=== PATIENT | female | born 1970 ===

== ENCOUNTER 2018-07-19 16:48 | Emergency (ER) | payer SELFPAY ==
[2018-07-19 16:59] VITALS: BP 99/63
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
== END 2018-07-19 18:30 | disposition home or self-care (01) ==
LOC: ED 16:48
DX: M79.18 Myalgia, other site (principal); Z88.6 Allergy status to analgesic agent; Z88.5 Allergy status to narcotic agent; Z88.0 Allergy status to penicillin; V49.49XA Driver injured in collision with other motor vehicles in traffic accident, initial encounter; Y93.89 Activity, other specified; Y92.89 Other specified places as the place of occurrence of the external cause; Y99.8 Other external cause status
CPT/HCPCS: 99282

== ENCOUNTER 2020-05-26 16:05 | Emergency (ER) | payer BC ==
[2020-05-26] MEDS ORDERED: diphenhydrAMINE 50 MG/ML VIAL IV ONE (16:58)
[2020-05-26] MEDS ORDERED: METOCLOPRAMIDE 10 MG/2 ML INJ IV ONE (16:58)
[2020-05-26] MEDS ORDERED: KETOROLAC 30 MG/1 ML INJ IV ONE (16:58)
[2020-05-26 17:09] VITALS: BP 119/71
--- NOTE | 2020-05-26 17:10 | Emergency Department Report ---
ED Headache HPI - General Chief Complaint: Headache Stated Complaint: HEADACHE Time Seen by Provider: 05/26/20 16:32 - History of Present Illness Initial Comments: Patient is a 49-year-old female presents emergency room complaints of a frontal headache that began 3 days ago. She states that occasionally when the pain increases she feels blurriness in her vision. She has no blurry vision currently. Patient states that she has a history of migraines. She states that she uses a migraine medication intranasally. She states that she has been using it over the last 3 days and it resolves the headache but when she wakes up the headache returns. She states that this is similar to previous migraines except that the intranasal medication usually resolves the migraine. She denies any numbness, weakness, vomiting, diarrhea, fever, neck stiffness, gait disturbance, speech disturbance. She sees Dr. Linares, neurologist for her migraines. She states that she last had a normal CT scan of her head in September 2019. She states that she also has a history of sarcoidosis. Allergy to Tylenol 3, penicillin, Percocet. Allergies/Adverse Reactions: Allergies acetaminophen [From Percocet] Allergy (Verified 07/19/18 16:59) Itching grass pollen Allergy (Verified 05/26/20 16:06) Itching oxycodone [From Percocet] Allergy (Verified 07/19/18 16:59) Itching Penicillins Allergy (Verified 07/19/18 16:59) Itching Home Medications: Ambulatory Orders Ketorolac [Toradol] 10 mg PO Q6H PRN #15 tablet 07/19/18 methOCARBAMOL [Robaxin TAB] 750 mg PO Q8H PRN #14 tablet 07/19/18 traMADoL [Ultram] 50 mg PO Q6HR PRN #14 tablet 07/19/18 Cyclobenzaprine [Flexeril] 10 mg PO TID PRN #12 tablet 10/21/19 Ibuprofen [Motrin] 800 mg PO Q8HR PRN #21 tablet 10/21/19 Metoclopramide [Reglan] 10 mg PO Q8HR PRN #12 tab 05/26/20 diphenhydrAMINE [Benadryl CAP] 25 mg PO Q8HR PRN #12 capsule 05/26/20 ED Review of Systems ROS: Stated complaint: HEADACHE Other details as noted in HPI Comment: All other systems reviewed and negative ED Past Medical Hx - Past Medical History Previous Medical History?: Yes Hx Headaches / Migraines: Yes Additional medical history: Sarcoidosis - Surgical History Past Surgical History?: Yes Additional Surgical History: Breast reduction - Social History Smoking Status: Never Smoker Substance Use Type: Alcohol - Medications Home Medications: Home Medications Medication Instructions Recorded Confirmed Last Taken Type Ketorolac [Toradol] 10 mg PO Q6H PRN #15 tablet 07/19/18 Unknown Rx methOCARBAMOL [Robaxin TAB] 750 mg PO Q8H PRN #14 tablet 07/19/18 Unknown Rx traMADoL [Ultram] 50 mg PO Q6HR PRN #14 tablet 07/19/18 Unknown Rx Cyclobenzaprine [Flexeril] 10 mg PO TID PRN #12 tablet 10/21/19 Unknown Rx Ibuprofen [Motrin] 800 mg PO Q8HR PRN #21 tablet 10/21/19 Unknown Rx Metoclopramide [Reglan] 10 mg PO Q8HR PRN #12 tab 05/26/20 Unknown Rx diphenhydrAMINE [Benadryl CAP] 25 mg PO Q8HR PRN #12 capsule 05/26/20 Unknown Rx ED Physical Exam - General Limitations: No Limitations General appearance: alert, in no apparent distress - Head Head exam: Present: atraumatic, normocephalic - Eye Eye exam: Present: PERRL, EOMI. Absent: conjunctival injection, nystagmus, periorbital swelling, periorbital tenderness Pupils: Present: normal accommodation - Neck Neck exam: Present: full ROM. Absent: meningismus - Respiratory Respiratory exam: Present: normal lung sounds bilaterally. Absent: respiratory distress, wheezes, rales, rhonchi, stridor, chest wall tenderness, accessory muscle use, decreased breath sounds, prolonged expiratory - Cardiovascular Cardiovascular Exam: Present: regular rate, normal rhythm, normal heart sounds. Absent: systolic murmur, diastolic murmur, rubs, gallop - Neurological Exam Neurological exam: Present: alert, oriented X3, CN II-XII intact, normal gait, other (normal finger to nose, normal heel to ross, no pronator drift, no facial asymmetry, 5/5 strength in the BUE/BLE, sensation intact throughout, no focal neuro deficit). Absent: motor sensory deficit - Psychiatric Psychiatric exam: Present: normal affect, normal mood - Skin Skin exam: Present: warm, dry, intact ED Course Vital Signs 05/26/20 16:08 Temperature 98.3 F Pulse Rate 79 Respiratory 18 Rate Blood Pressure 119/71 O2 Sat by Pulse 97 Oximetry ED Medical Decision Making - Medical Decision Making Patient is a 49-year-old female presents emergency room complaints of a frontal headache that began 3 days ago. She states that occasionally when the pain increases she feels blurriness in her vision. She has no blurry vision currently. Patient states that she has a history of migraines. She states that she uses a migraine medication intranasally. She states that she has been using it over the last 3 days and it resolves the headache but when she wakes up the headache returns. She states that this is similar to previous migraines except that the intranasal medication usually resolves the migraine. She denies any numbness, weakness, vomiting, diarrhea, fever, neck stiffness, gait disturbance, speech disturbance. She sees Dr. Linares, neurologist for her migraines. She states that she last had a normal CT scan of her head in September 2019. She states that she also has a history of sarcoidosis. Allergy to Tylenol 3, penicillin, Percocet. vitals are normal. no neuro deficits on exam. Offered patient CT head imaging and she declined and states that she will follow-up with her neurologist tomorrow, she states that she will return if she has any new or worsening symptoms. Patient given Benadryl, Reglan, Toradol and headache completely resolved and she is ready to go home. Patient given prescription for Reglan and Benadryl. Advised patient Please continue using your medication as prescribed by your neurologist. Please take medication as prescribed. Benadryl may cause drowsiness so do not drive or operate heavy machinery while taking this medication. Follow-up with your primary care doctor. Follow-up with your neurologist. Return to emergency room immediately for any new or worsening symp toms. - Differential Diagnosis migraine headache, tension headache, cluster headache, chronic BERMUDEZ Critical care attestation.: If time is entered above; I have spent that time in minutes in the direct care of this critically ill patient, excluding procedure time. ED Disposition Clinical Impression: Migraine headache Qualifiers: Migraine type: unspecified Status migrainosus presence: without status migrainosus Intractability: not intractable Qualified Code(s): G43.909 - Migraine, unspecified, not intractable, without status migrainosus Disposition: DC-01 TO HOME OR SELFCARE Is pt being admited?: No Does the pt Need Aspirin: No Condition: Stable Instructions: Migraine Headache (ED) Additional Instructions: Please continue using your medication as prescribed by your neurologist. Please take medication as prescribed. Benadryl may cause drowsiness so do not drive or operate heavy machinery while taking this medication. Follow-up with your primary care doctor. Follow-up with your neurologist. Return to emergency room immediately for any new or worsening symptoms. Prescriptions: diphenhydrAMINE [Benadryl CAP] 25 mg PO Q8HR PRN #12 capsule PRN Reason: headache Metoclopramide [Reglan] 10 mg PO Q8HR PRN #12 tab PRN Reason: headache Referrals: [facility] [Primary Care Provider] - 2-3 Days GEORGE LINARES MD [Referring] - 2-3 Days Time of Disposition: 18:20 Print Language: ALBANIAN
== END 2020-05-26 18:29 | disposition home or self-care (01) ==
LOC: ED 16:05
DX: G43.909 Migraine, unspecified, not intractable, without status migrainosus (principal); Z98.890 Other specified postprocedural states; Z79.1 Long term (current) use of non-steroidal anti-inflammatories (NSAID); Z79.899 Other long term (current) drug therapy; Z88.0 Allergy status to penicillin; Z88.8 Allergy status to other drugs, medicaments and biological substances
CPT/HCPCS: 96374; 96375; 99282; J1200; J1885; J2765

== ENCOUNTER 2020-08-05 10:38 | Emergency (ER) | payer BC ==
--- NOTE | 2020-08-05 12:30 | XRay Report ---
CHEST 2 VIEWS INDICATION: cough. COMPARISON: None. FINDINGS: Support devices: None. Heart: Within normal limits. Lungs/Pleura: No acute air space or interstitial disease. No significant pleural effusion. IMPRESSION: No acute findings. Signer Name: Fadi Fritz MD Signed: 08/05/2020 12:25 PM Workstation Name: [id number]
--- NOTE | 2020-08-05 12:37 | Emergency Department Report ---
Upper Respiratory HPI - HPI Chief Complaint: Upper Respiratory Infection Stated Complaint: CHILLS SORE THROAT Time Seen by Provider: 08/05/20 11:10 Duration: 2 Days URI Symptoms: Rhinorrhea: No, Sore Throat: No, Ear Pain: No, Cough: Yes, Shortness of Breath: No, Sick Contacts: No, Unable to Take Fluids: No, Urine Output Abnormal: No, Listless Behavior: No Other History: This is a 49-year-old female nontoxic well in [facility] with no signs of distress presents with dry nonproductive cough x2 days. Patient denies any chest pain, shortness of breathe, fever, chills, nausea, vomiting, headache, stiff neck, abdominal pain, numbness or tingling. Patient denies any recent travels, long car rides, or recent hospital stays. - Home Meds and Allergies Home Medications: Previous Rx's Medication Instructions Recorded Last Taken Type Ketorolac [Toradol] 10 mg PO Q6H PRN #15 tablet 07/19/18 Unknown Rx methOCARBAMOL [Robaxin TAB] 750 mg PO Q8H PRN #14 tablet 07/19/18 Unknown Rx traMADoL [Ultram] 50 mg PO Q6HR PRN #14 tablet 07/19/18 Unknown Rx Cyclobenzaprine [Flexeril] 10 mg PO TID PRN #12 tablet 10/21/19 Unknown Rx Ibuprofen [Motrin] 800 mg PO Q8HR PRN #21 tablet 10/21/19 Unknown Rx Metoclopramide [Reglan] 10 mg PO Q8HR PRN #12 tab 05/26/20 Unknown Rx diphenhydrAMINE [Benadryl CAP] 25 mg PO Q8HR PRN #12 capsule 05/26/20 Unknown Rx Benzonatate [Tessalon Perles] 100 mg PO Q8HR PRN #12 capsule 08/05/20 Unknown Rx Allergies/Adverse Reactions: Allergies Allergy/AdvReac Type Severity Reaction Status Date / Time acetaminophen [From Percocet] Allergy Itching Verified 07/19/18 16:59 grass pollen Allergy Itching Verified 05/26/20 16:06 oxycodone [From Percocet] Allergy Itching Verified 07/19/18 16:59 Penicillins Allergy Itching Verified 07/19/18 16:59 ED Review of Systems ROS: Stated complaint: CHILLS SORE THROAT Other details as noted in HPI Comment: All other systems reviewed and negative Constitutional: denies: chills, fever Eyes: denies: eye pain, eye discharge, vision change ENT: denies: ear pain, throat pain Respiratory: cough. denies: shortness of breath, wheezing Cardiovascular: denies: chest pain, palpitations Endocrine: no symptoms reported Gastrointestinal: denies: abdominal pain, nausea, diarrhea Genitourinary: denies: urgency, dysuria, discharge Musculoskeletal: denies: back pain, joint swelling, arthralgia Skin: denies: rash, lesions Neurological: denies: headache, weakness, paresthesias Psychiatric: denies: anxiety, depression Hematological/Lymphatic: denies: easy bleeding, easy bruising ED Past Medical Hx - Past Medical History Previous Medical History?: No Hx Headaches / Migraines: Yes Additional medical history: Sarcoidosis - Surgical History Past Surgical History?: No Additional Surgical History: Breast reduction - Social History Smoking Status: Never Smoker Substance Use Type: None - Medications Home Medications: Home Medications Medication Instructions Recorded Confirmed Last Taken Type Ketorolac [Toradol] 10 mg PO Q6H PRN #15 tablet 07/19/18 Unknown Rx methOCARBAMOL [Robaxin TAB] 750 mg PO Q8H PRN #14 tablet 07/19/18 Unknown Rx traMADoL [Ultram] 50 mg PO Q6HR PRN #14 tablet 07/19/18 Unknown Rx Cyclobenzaprine [Flexeril] 10 mg PO TID PRN #12 tablet 10/21/19 Unknown Rx Ibuprofen [Motrin] 800 mg PO Q8HR PRN #21 tablet 10/21/19 Unknown Rx Metoclopramide [Reglan] 10 mg PO Q8HR PRN #12 tab 05/26/20 Unknown Rx diphenhydrAMINE [Benadryl CAP] 25 mg PO Q8HR PRN #12 capsule 05/26/20 Unknown Rx Benzonatate [Tessalon Perles] 100 mg PO Q8HR PRN #12 capsule 08/05/20 Unknown Rx ED Bronchiolitis Physical Exam - Exam General: Vital signs noted. No distress. Alert and acting appropriately. HEENT: No Pharyngeal Erythema, No Conjuctival Injection, No Dry Mucous Membranes, No Rhinorrhea Ear: Neither TM Bulge, Neither TM Erythema, Neither EAC Discharge Neck: No Adenopathy, No Rigidity Lungs: Yes Clear Lung Sounds, Yes Good Air Exchange, No Wheezes, No Stridor, No Cough, No Nasal Flaring, No Retractions, No Use of Accessory Muscles Heart: Yes Regular, No Murmur Abdomen: Yes Normal Bowel Sounds, No Tenderness, No Peritoneal Signs Skin: No Rash, No Eczema Neurologic: Alert and oriented, no deficits. Musculoskeletal: Unremarkable. ED Physical Exam - General Limitations: No Limitations ED Course Vital Signs 08/05/20 11:04 Temperature 98.0 F Pulse Rate 74 Respiratory 18 Rate Blood Pressure 93/58 O2 Sat by Pulse 99 Oximetry Vital Signs 08/05/20 08/05/20 11:04 13:05 Temperature 98.0 F Pulse Rate 74 Respiratory 18 Rate Blood Pressure 93/58 Blood Pressure 103/67 [Right] O2 Sat by Pulse 99 Oximetry - Reevaluation(s) Reevaluation #1: 08/05/20 12:37 Patient is speaking in full sentences with no signs of distress noted. ED Medical Decision Making - Medical Decision Making 49-year-old female that presents with viral bronchitis like symptoms. Patient is stable and was examined by me. Chest xray is unrmarkable and dicated by the radiologist. Pt is notified of the xray results with no questions noted by the patient. Patient was educated on OTC suppurative care and medications. Vital signs are stable. Patient was instructed to Follow-up with a primary care doctor in 3-5 days or if symptoms worsen and continue return to emergency room as soon as possible. At time of discharge, the patient does not seem toxic or ill in appearance. No acute signs of distress noted. Patient agrees to discharge treatment plan of care. No further questions noted by the patient. Critical care attestation.: If time is entered above; I have spent that time in minutes in the direct care of this critically ill patient, excluding procedure time. ED Disposition Clinical Impression: Viral bronchitis Disposition: DC-01 TO HOME OR SELFCARE Is pt being admited?: No Does the pt Need Aspirin: No Condition: Stable Instructions: Acute Bronchitis, Adult, [id number], Chronic Bronchitis (ED) Additional Instructions: Follow-up with a primary care doctor in 3-5 days or if symptoms worsen and continue return to the emergency department as soon as possible. Prescriptions: Benzonatate [Tessalon Perles] 100 mg PO Q8HR PRN #12 capsule PRN Reason: Cough Referrals: [facility] [Referring] - 3-5 Days DOV WHITTEN MD [Staff Physician] - 3-5 Days Forms: Work/School Release Form(ED)
[2020-08-05 13:06] VITALS: BP 103/67
== END 2020-08-05 14:33 | disposition home or self-care (01) ==
LOC: ED 10:38
DX: J20.8 Acute bronchitis due to other specified organisms (principal); G43.909 Migraine, unspecified, not intractable, without status migrainosus; Z79.899 Other long term (current) drug therapy; Z88.0 Allergy status to penicillin; Z88.8 Allergy status to other drugs, medicaments and biological substances
CPT/HCPCS: 71046; 99283

== ENCOUNTER 2020-12-08 18:32 | Emergency (ER) | payer BC ==
[2020-12-08] MEDS ORDERED: ONDANSETRON 4 MG ODT TAB PO ONE (18:41)
[2020-12-08] MEDS ORDERED: oxyCODONE /ACETAMINOPHEN 5-325MG TAB PO ONE (18:41)
[2020-12-08] MEDS ORDERED: diphenhydrAMINE 25 MG CAP PO ONE (18:43)
--- NOTE | 2020-12-08 18:47 | Event Note ---
ED Screening Note Date of service: 12/08/20 Time: 18:46 ED Screening Note: Patient complains of sudden onset of left flank/upper back pain with shortness of breath this morning Patient has a history of sarcoidosis and also had surgery performed to her left leg/foot 5 to 6 weeks ago History of spontaneous pneumothorax per patient-she reports this feels the same This initial assessment/diagnostic orders/clinical plan/treatment(s) is/are subject to change based on patients health status, clinical progression and re- assessment by fellow clinical providers in the ED. Further treatment and workup at subsequent clinical providers discretion. Patient/guardian urged not to elope from the ED as their condition may be serious if not clinically assessed and managed. Initial orders include: Labs Chest x-ray Meds
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
[2020-12-08 19:28] LABS: Basophils # (Auto) 0.1 K/mm3 (0.0-0.1); Basophils % (Auto) 1.1 % (0.0-1.8); Eosinophils # (Auto) 0.1 K/mm3 (0.0-0.4); Eosinophils % (Auto) 1.1 % (0.0-4.3); Hematocrit 37.2 % (30.3-42.9); Hemoglobin 12.4 gm/dl (10.1-14.3); Lymphocytes % (Auto) 34.5 % (13.4-35.0); Mean Corpuscular HGB Conc 33 % (30-34); Mean Corpuscular Volume 83 fl (79-97); Monocytes # (Auto) 0.6 K/mm3 (0.0-0.8); Monocytes % (Auto) 11.1 % (0.0-7.3); Platelet Count 295 K/mm3 (140-440); Red Blood Count 4.49 M/mm3 (3.65-5.03); Red Cell Distribution Width 14.1 % (13.2-15.2)
[2020-12-08 19:52] LABS: Alanine Aminotransferase 11 units/L (7-56); Albumin 4.2 g/dL (3.9-5); BUN/Creatinine Ratio 14; Blood Urea Nitrogen 14 mg/dL (7-17); Calcium 9.1 mg/dL (8.4-10.2); Hemolysis Index 7
[2020-12-08] MEDS ORDERED: HYDROmorphone 1 MG/1 ML INJ IV ONE (21:17)
[2020-12-08] MEDS ORDERED: LACTATED RINGERS 500 ML IV ONE (21:17)
--- NOTE | 2020-12-08 21:22 | Emergency Department Report ---
ED General Adult HPI - General Chief complaint: Dyspnea/Respdistress Stated complaint: FLANK PAIN, ROXY PUI?: No Time Seen by Provider: 12/08/20 18:41 Source: patient, RN notes reviewed Mode of arrival: Ambulatory Limitations: No Limitations - History of Present Illness Initial comments: The patient was evaluated in the emergency department for symptoms described in the history of present illness. He/she was evaluated in the context of the global COVID-19 pandemic, which necessitated consideration that the patient might be at risk for infection with the virus that causes COVID-19. Institutional protocols and algorithms that pertain to the evaluation of patients at risk for COVID-19 are in a state of rapid change based on information released by regulatory bodies including the CDC and federal and state organizations. These policies and algorithms were followed during the patient's care in the emergency department. Please note that these policies, procedures and recommendations changed on a rapid basis. The patient is a pleasant 49-year-old female. She is not known to myself previously. Her primary care doctor is Dr. Deena Dupont Patient has a history of bunion removal 6 weeks ago at an outpatient gas plant specialist, [facility], on [facility]. She has a very distant history of spontaneous pneumothorax approximately 25 years ago. The patient states that she is not . The patient presents to the ER with a complaint of left lateral thorax pain which is pleuritic, exertional shortness of breath, and left posterior leg pain and subjective swelling. All the symptoms have started within the past 24 to 36 hours. Patient has an Unna boot to her left lower extremity, which she occasionally takes off, for her bunion. The patient denies headache, neck pain, central chest pain, vomiting, diarrhea, hematemesis, bright red blood per rectum, loss of taste, and loss of smell. Her symptoms are constant since yesterday. Her left thorax pain increases with deep inspiration. It decreases with rest, and shallow inspiration. -: Gradual, days(s) Location: chest, abdomen (Left flank), left, lower extremity Severity scale (0 -10): 0 Quality: aching, other (Pleuritic) Consistency: constant Improves with: other (As per history of present illness) Worsens with: other (As per history of present illness) - Related Data Previous Rx's Medication Instructions Recorded Last Taken Type Ketorolac [Toradol] 10 mg PO Q6H PRN #15 tablet 07/19/18 Unknown Rx Ibuprofen [Motrin] 800 mg PO Q8HR PRN #21 tablet 10/21/19 Unknown Rx Metoclopramide [Reglan] 10 mg PO Q8HR PRN #12 tab 05/26/20 Unknown Rx diphenhydrAMINE [Benadryl CAP] 25 mg PO Q8HR PRN #12 capsule 05/26/20 Unknown Rx Benzonatate [Tessalon Perles] 100 mg PO Q8HR PRN #12 capsule 08/05/20 Unknown Rx Ibuprofen [Motrin] 600 mg PO Q8H PRN #30 tablet 12/08/20 Unknown Rx Allergies Allergy/AdvReac Type Severity Reaction Status Date / Time acetaminophen [From Percocet] Allergy Itching Verified 07/19/18 16:59 grass pollen Allergy Itching Verified 05/26/20 16:06 oxycodone [From Percocet] Allergy Itching Verified 07/19/18 16:59 Penicillins Allergy Itching Verified 07/19/18 16:59 ED Review of Systems ROS: Stated complaint: FLANK PAIN, ROXY Other details as noted in HPI Constitutional: denies: fever, malaise, weakness Eyes: denies: eye discharge ENT: denies: other Respiratory: shortness of breath, SOB with exertion, SOB at rest. denies: wheezing Cardiovascular: dyspnea on exertion. denies: chest pain, palpitations Gastrointestinal: abdominal pain (Left flank pain). denies: hematemesis, melena, hematochezia Genitourinary: denies: urgency, dysuria Musculoskeletal: back pain Hematological/Lymphatic: denies: easy bleeding ED Past Medical Hx - Past Medical History Previous Medical History?: Yes Hx Headaches / Migraines: Yes Additional medical history: Sarcoidosis, Left bunionectomy, Left collapsed lung - Surgical History Past Surgical History?: Yes Hx Breast Surgery: Yes Additional Surgical History: Breast reduction, Bunionectomy - Social History Smoking Status: Never Smoker Substance Use Type: Alcohol - Medications Home Medications: Home Medications Medication Instructions Recorded Confirmed Last Taken Type Ketorolac [Toradol] 10 mg PO Q6H PRN #15 tablet 07/19/18 Unknown Rx Ibuprofen [Motrin] 800 mg PO Q8HR PRN #21 tablet 10/21/19 Unknown Rx Metoclopramide [Reglan] 10 mg PO Q8HR PRN #12 tab 05/26/20 Unknown Rx diphenhydrAMINE [Benadryl CAP] 25 mg PO Q8HR PRN #12 capsule 05/26/20 Unknown Rx Benzonatate [Tessalon Perles] 100 mg PO Q8HR PRN #12 capsule 08/05/20 Unknown Rx Ibuprofen [Motrin] 600 mg PO Q8H PRN #30 tablet 12/08/20 Unknown Rx ED Physical Exam - General Limitations: No Limitations General appearance: alert, anxious, in distress, obese - Head Head exam: Present: atraumatic, normocephalic - Eye Eye exam: Present: normal appearance, EOMI. Absent: nystagmus - ENT ENT exam: Present: normal exam, normal orophraynx, mucous membranes moist, normal external ear exam - Neck Neck exam: Present: normal inspection, full ROM. Absent: tenderness, meningismus - Respiratory Respiratory exam: Present: normal lung sounds bilaterally. Absent: respiratory distress, wheezes, rales, rhonchi, stridor - Cardiovascular Cardiovascular Exam: Present: regular rate, normal rhythm, normal heart sounds. Absent: bradycardia, tachycardia, irregular rhythm, systolic murmur, diastolic murmur, rubs, gallop - GI/Abdominal GI/Abdominal exam: Present: soft. Absent: distended, tenderness, guarding, rebound, rigid, pulsatile mass - Extremities Exam Extremities exam: Present: normal inspection (Left lower extremity surgical site healing well, without redness, pus or streaking.), full ROM, other (2+ pulses noted in the bilateral upper and lower extremities. There is no palpable cord. negative Homans sign. Muscular compartments are soft. The pelvis is stable.). Absent: tenderness - Back Exam Back exam: Present: normal inspection, full ROM. Absent: tenderness, CVA tenderness (R), CVA tenderness (L), paraspinal tenderness, vertebral tenderness - Neurological Exam Neurological exam: Present: alert, other (No facial droop. Tongue midline. Extraocular movements intact bilaterally. Facial sensation intact to light touch in V1, V2, V3 distribution bilaterally. 5 and a 5 strength in 4 extremities. Sensation intact to light touch in 4 extremities.). Absent: motor sensory deficit - Psychiatric Psychiatric exam: Present: anxious - Skin Skin exam: Present: warm, dry, intact, normal color. Absent: rash ED Course Vital Signs 12/08/20 12/08/20 12/08/20 18:41 19:28 21:00 Temperature 98 F Pulse Rate 92 H Respiratory 24 20 14 Rate Blood Pressure 104/75 Blood Pressure [Left] O2 Sat by Pulse 99 98 Oximetry 12/08/20 12/08/20 21:01 23:11 Temperature Pulse Rate 77 82 Respiratory 14 13 Rate Blood Pressure Blood Pressure 120/55 124/52 [Left] O2 Sat by Pulse 98 97 Oximetry - Reevaluation(s) Reevaluation #1: 12/08/20 21:26 Differential diagnosis, including but limited to: Pulmonary embolism, DVT, pleurisy, pneumonia, urinary tract infection/renal colic Assessment and plan: 49-year-old female, who is had an Unna boot to her left lower extremity for the past 6 weeks, secondary to elective bunion intervention, now presenting with left flank pain which is pleuritic, exertional shortness of breath, and left lower extremity pain and swelling. I suspect DVT and pulmonary embolism. We will obtain CT angiogram chest, CT scan abdomen pelvis, and left lower extremity DVT study. We will treat the patient's pain agg ressively. We will also obtain a urinalysis. The patient states that she is not . I will withhold systemic anticoagulation pending results of CT scan of the abdomen pelvis, in case patient has an atypical presentation of an emergent surgical condition. X-ray the chest shows no evidence of pneumothorax. Initial D-dimer reviewed and appreciated. However, based off the patient's history, I would not consider her to be low pretest probability for pulmonary embolism/DVT, and therefore, I do not think that negative D-dimer can adequately risk stratify this patient for thromboembolic disease, as the patient is not a low risk/low pretest probability patient. Troponin sent prior to my personal evaluation. EKG unremarkable. Symptoms present upon waking up from this morning at least, therefore, symptoms present for greater than 8 hours. Patient low risk for major adverse cardiac event as per heart score. Reevaluation #2: 12/08/20 22:25 DVT study negative. Urinalysis, CT scans pending at this time. Reevaluation #3: 12/08/20 23:24 CT scan of the chest negative for acute findings. CT scan of the abdomen pelvis negative for acute findings. Vital signs stable. Resting comfortably. DVT study negative. Patient complained initially of pleuritic pain, and some shortness of breath, she is not currently hypoxic, and after a thorough ER evaluation, including history, physical, laboratory studies, EKG, CT scan chest, CT scan abdomen pelvis, left lower extremity DVT study, it appears that emergent conditions have been excluded. The patient will be discharged with NSAIDs, and instructed to follow-up with her outpatient primary care doctor. Reevaluation #4: 12/08/20 23:57 Urinalysis is not consistent with urinary tract infection. Patient will be discharged with appropriate pain medication and instructions for outpatient follow-up. ED Medical Decision Making - Lab Data Result diagrams: 12/08/20 19:19 12/08/20 19:19 Vital Signs 12/08/20 12/08/20 12/08/20 18:41 19:28 21:00 Temperature 98 F Pulse Rate 92 H Respiratory 24 20 14 Rate Blood Pressure 104/75 Blood Pressure [Left] O2 Sat by Pulse 99 98 Oximetry 12/08/20 21:01 Temperature Pulse Rate 77 Respiratory 14 Rate Blood Pressure Blood Pressure 120/55 [Left] O2 Sat by Pulse 98 Oximetry Lab Results 12/08/20 12/08/20 12/08/20 Range/Units 19:19 19:19 20:43 WBC 5.7 (4.5-11.0) K/mm3 RBC 4.49 (3.65-5.03) M/mm3 Hgb 12.4 (10.1-14.3) gm/dl Hct 37.2 (30.3-42.9) % MCV 83 (79-97) fl MCH 28 (28-32) pg MCHC 33 (30-34) % RDW 14.1 (13.2-15.2) % Plt Count 295 (140-440) K/mm3 Lymph % (Auto) 34.5 (13.4-35.0) % Hunt % (Auto) 11.1 H (0.0-7.3) % Eos % (Auto) 1.1 (0.0-4.3) % Baso % (Auto) 1.1 (0.0-1.8) % Lymph # (Auto) 2.0 (1.2-5.4) K/mm3 Hunt # (Auto) 0.6 (0.0-0.8) K/mm3 Eos # (Auto) 0.1 (0.0-0.4) K/mm3 Baso # (Auto) 0.1 (0.0-0.1) K/mm3 Seg Neutrophils % 52.2 (40.0-70.0) % Seg Neutrophils # 3.0 (1.8-7.7) K/mm3 D-Dimer 163.50 (0-234) ng/mlDDU Sodium 137 (137-145) mmol/L Potassium 3.9 (3.6-5.0) mmol/L Chloride 102.0 (98-107) mmol/L Carbon Dioxide 26 (22-30) mmol/L Anion Gap 13 mmol/L BUN 14 (7-17) mg/dL Creatinine 1.0 (0.6-1.2) mg/dL Estimated GFR 59 ml/min BUN/Creatinine Ratio 14 % Glucose 100 (65-100) mg/dL Calcium 9.1 (8.4-10.2) mg/dL Total Bilirubin 0.30 (0.1-1.2) mg/dL AST 14 (5-40) units/L ALT 11 (7-56) units/L Alkaline Phosphatase 73 (35-129) units/L Troponin T < 0.010 (0.00-0.029) ng/mL Total Protein 7.0 (6.3-8.2) g/dL Albumin 4.2 (3.9-5) g/dL Albumin/Globulin Ratio 1.5 % - EKG Data -: EKG Interpreted by Ms EKG shows normal: sinus rhythm Rate: normal - EKG Data When compared to previous EKG there are: previous EKG unavailable 12/08/20 21:26 There is no prior EKG available for comparison. Time of EKG interpretation, 20: 40 Sinus rhythm, 64 bpm. Normal axis, left ventricular hypertrophy/high left ventricular voltage, intervals within normal limits. This EKG is not a STEMI. - Radiology Data Radiology results: pending, report reviewed, image reviewed CHEST 2 VIEWS INDICATION / CLINICAL INFORMATION: acute left chest pain, hx of pneumothorax. COMPARISON: 08/05/2020 FINDINGS: SUPPORT DEVICES: None. HEART / MEDIASTINUM: No significant abnormality. LUNGS / PLEURA: No significant pulmonary or pleural abnormality. No pneumothorax. ADDITIONAL FINDINGS: No significant additional findings. IMPRESSION: 1. No acute findings. Signer Name: Anderson Tsang MD Signed: 12/08/2020 6:06 PM Workstation Name: [id number] DUPLEX DOPPLER LOWER EXTREMITY VEINS, LEFT INDICATION / CLINICAL INFORMATION: lle pain swelling. TECHNIQUE: Duplex doppler imaging was performed through the veins of the left lower extremity using venous compression and other maneuvers. COMPARISON: None available. FINDINGS: LEFT COMMON FEMORAL VEIN: Negative. LEFT FEMORAL VEIN: Negative. LEFT POPLITEAL VEIN: Negative. LEFT CALF VEINS: Negative. ADDITIONAL FINDINGS: None. IMPRESSION: 1. No sonographic evidence for DVT in the left lower extremity. Signer Name: Anderson Tsang MD Signed: 8:59 PM Workstation Name: [id number] CT angio chest INDICATION / CLINICAL INFORMATION: Acute pleuritic thorax pain. TECHNIQUE: Axial CT images were obtained through the chest after injection of IV contrast. 3 plane MIP and/or 3D reconstructions were produced. All CT scans at this location are performed using CT dose reduction for ALARA by means of automated exposure control. COMPARISON: None available. FINDINGS: PULMONARY ARTERIES: No pulmonary emboli. HEART: No significant abnormality. MEDIASTINUM / JOSE MIGUEL: No significant abnormality. LUNGS: Dependent atelectasis. No pleural eff usion. No pneumothorax. ADDITIONAL FINDINGS: None. UPPER ABDOMEN: No acute findings. SKELETAL STRUCTURES: No significant osseous abnormality. IMPRESSION: 1. No CT evidence for pulmonary embolism. 2. No acute findings. Signer Name: Yanick Rothman MD Signed: 12/08/2020 10:09 PM Workstation Name: [id number] CT abdomen pelvis w con INDICATION: Left flank pain, pleuritic, left upper quadrant. COMPARISON: None TECHNIQUE: Abdominal and pelvic CT exam performed. All CT scans at this location are performed using CT dose reduction for ALARA by means of automated exposure control. FINDINGS: CT ABDOMEN and PELVIS: Lung Bases: Dependent atelectasis. Liver: No significant abnormality. Biliary: No significant abnormality. Spleen: No significant abnormality. Pancreas: No significant abnormality. Adrenals: No significant abnormality. Kidneys: No significant abnormality. Lymphatics: No lymphadenopathy. Vasculature: No significant abnormality. Bowel: No significant abnormality. Normal appendix. P pamela: No significant abnormality. Osseous Structures: No aggressive osseous lesion. Additional Findings: None IMPRESSION: 1. No significant abnormality of the abdomen or pelvis. Signer Name: Yanick Rothman MD Signed: 12/08/2020 10:13 PM Workstation Name: [id number] Critical care attestation.: If time is entered above; I have spent that time in minutes in the direct care o f this critically ill patient, excluding procedure time. ED Disposition Clinical Impression: Pleuritic pain, Left flank pain, Left leg pain Disposition: -01 TO HOME OR SELFCARE Is pt being admited?: No Does the pt Need Aspirin: No Condition: Good Instructions: Pleurisy, [id number] Additional Instructions: Do not take metformin medication for the next 2 days, if patient takes this medication. Take the prescribed ibuprofen as directed. Make certain to take this medication with food. Patient may alternate ice packs with heat packs as needed to areas of physical pain. We do recommend that the patient continue to take off boot occasionally, and make certain to ambulate/walk on a regular basis . Please follow-up with your outpatient gas plant specialist as scheduled within the next week and 1/2 to 2 weeks. Please follow-up with a primary care doctor within the next 7 to 10 days. Please return to the emergency room right away with new pain, worsened pain, migration of pain, projectile vomiting, change in mental status, confusion, inability to tolerate liquid feeds, new, worsened or different symptoms not present on the initial emergency room evaluation. Prescriptions: Ibuprofen [Motrin] 600 mg PO Q8H PRN #30 tablet PRN Reason: Pain Referrals: DOV WHITTEN MD [Staff Physician] - 3-5 Days [facility] [Provider Group] - 3-5 Days Forms: Work/School Release Form(ED) Heart Score - HEART Score History: Slightly suspicious EKG: Non-specific Age: < 45 Risk factors: No known risk factors Troponin: < normal limit HEART Score: 1 - Critical Actions Critical Actions: 0-3 pts:0.9-1.7%risk of adverse cardiac event.Candidate for discharge
[2020-12-08 21:52] LABS: INR 1.15 (0.87-1.13)
--- NOTE | 2020-12-08 22:04 | Vascular Lab Report ---
DUPLEX DOPPLER LOWER EXTREMITY VEINS, LEFT INDICATION / CLINICAL INFORMATION: lle pain swelling. TECHNIQUE: Duplex doppler imaging was performed through the veins of the left lower extremity using venous compr ession and other maneuvers. COMPARISON: None available. FINDINGS: LEFT COMMON FEMORAL VEIN: Negative. LEFT FEMORAL VEIN: Negative. LEFT POPLITEAL VEIN: Negative. LEFT CALF VEINS: Negative. ADDITIONAL FINDINGS: None. IMPRESSION: 1. No sonographic evidence for DVT in the left lower extremity. Signer Name: Anderson Tsang MD Signed: 12/08/2020 9:59 PM Workstation Name: [id number]
--- NOTE | 2020-12-08 23:13 | Cat Scan Report ---
CT angio chest INDICATION / CLINICAL INFORMATION: Acute pleuritic thorax pain. TECHNIQUE: Axial CT images were obtained through the chest after injection of IV contrast. 3 plane MIP and/or 3D reconstructions were produced. All CT scans at this location are performed using CT dose reduction f or ALARA by means of automated exposure control. COMPARISON: None available. FINDINGS: PULMONARY ARTERIES: No pulmonary emboli. HEART: No significant abnormality. MEDIASTINUM / JOSE MIGUEL: No significant abnormality. LUNGS: Dependent atelectasis. No pleural effusion. No pneumothorax. ADDITIONAL FINDINGS: None. UPPER ABDOMEN: No acute findings. SKELETAL STRUCTURES: No significant osseous abnormality. IMPRESSION: 1. No CT evidence for pulmonary embolism. 2. No acute findings. Signer Name: Yanick Rothman MD Signed: 12/08/2020 11:09 PM Workstation Name: [id number]
--- NOTE | 2020-12-08 23:18 | Cat Scan Report ---
CT abdomen pelvis w con INDICATION: Left flank pain, pleuritic, left upper quadrant. COMPARISON: None TECHNIQUE: Abdominal and pelvic CT exam performed. All CT scans at this location are performed using CT dose reduction for ALARA by means of automated exposure control. FINDINGS: CT ABDOMEN and PELVIS: Lung Bases: Dependent atelectasis. Liver: No significant abnormality. Biliary: No significant abnormality. Spleen: No significant abnormality. Pancreas: No significant abnormality. Adrenals: No significant abnormality. Kidneys: No significant abnormality. Lymphatics: No lymphadenopathy. Vasculature: No significant abnormality. Bowel: No significant abnormality. Normal appendix. Pelvis: No significant abnormality. Osseous Structures: No aggressive osseous lesion. Additional Findings: None IMPRESSION: 1. No significant abnormality of the abdomen or pelvis. Signer Name: Yanick Rothman MD Signed: 12/08/2020 11:13 PM Workstation Name: [id number]
[2020-12-08] MEDS ORDERED: KETOROLAC 30 MG/1 ML INJ IV ONE (23:23)
[2020-12-08 23:32] LABS: Bilirubin,Urine NEG (Negative); Blood,Urine NEG (Negative); Color,Urine Yellow (Yellow); Hyaline Casts,Urine 1 /LPF; Mucus,Urine FEW /HPF; Protein,Urine <15 mg/dL mg/dL (Negative); Urobilinogen,Urine < 2.0 mg/dL (<2.0)
[2020-12-09 00:49] VITALS: BP 110/72
== END 2020-12-09 00:48 | disposition home or self-care (01) ==
LOC: ED 18:32
DX: R07.81 Pleurodynia (principal); M79.605 Pain in left leg; R10.9 Unspecified abdominal pain; G43.909 Migraine, unspecified, not intractable, without status migrainosus; Z98.890 Other specified postprocedural states; Z79.1 Long term (current) use of non-steroidal anti-inflammatories (NSAID); Z79.899 Other long term (current) drug therapy; Z88.0 Allergy status to penicillin; Z88.8 Allergy status to other drugs, medicaments and biological substances
CPT/HCPCS: 36415; 71046; 71275; 74177; 80053; 81001; 82550; 83735; 84484; 85025; 85379; 85610; 93005; 93971; 96374; 99285; J1170; J7120; Q9967; Q0162

== ENCOUNTER 2021-06-27 11:43 | Emergency (ER) | payer BC ==
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
[2021-06-27 13:17] LABS: Basophils # (Auto) 0.1 K/mm3 (0.0-0.1); Basophils % (Auto) 1.2 % (0.0-1.8); Eosinophils # (Auto) 0.3 K/mm3 (0.0-0.4); Eosinophils % (Auto) 5.3 % (0.0-4.3); Hematocrit 36.9 % (30.3-42.9); Hemoglobin 12.1 gm/dl (10.1-14.3); Lymphocytes # (Auto) 2.1 K/mm3 (1.2-5.4); Lymphocytes % (Auto) 37.6 % (13.4-35.0); Mean Corpuscular HGB Conc 33 % (30-34); Mean Corpuscular Volume 83 fl (79-97); Monocytes # (Auto) 0.6 K/mm3 (0.0-0.8); Monocytes % (Auto) 10.2 % (0.0-7.3); Platelet Count 405 K/mm3 (140-440); Red Blood Count 4.45 M/mm3 (3.65-5.03); Red Cell Distribution Width 14.1 % (13.2-15.2)
[2021-06-27 13:31] LABS: INR 1.1 (0.87-1.13)
[2021-06-27 13:32] LABS: Partial Thromboplastin Time 30.9 Sec. (24.2-36.6)
[2021-06-27 13:37] LABS: Alanine Aminotransferase 13 units/L (7-56); Albumin 4.1 g/dL (3.9-5); BUN/Creatinine Ratio 16; Blood Urea Nitrogen 18 mg/dL (7-17); Calcium 9.4 mg/dL (8.4-10.2); Hemolysis Index 108
--- NOTE | 2021-06-27 14:17 | Cat Scan Report ---
CTA CHEST WITH CONTRAST INDICATION : sob, s/p breast surgery and travel, breast redness. TECHNIQUE: Axial imaging performed through the chest, with contrast bolus timing set to maximize opa cification of the pulmonary arteries. Sagittal and coronal reformatted images. 3-plane MIP reformatte d images were obtained. All CT scans at this location are performed using CT dose reduction for ALAR A by means of automated exposure control. 100 mL of intravenous contrast administered. COMPARISON: 12/08/2020 FINDINGS: Bolus: Contrast bolus timing is adequate. PTE: No filling defect is present to suggest PTE. Mediastinum: Heart and great vessels appear normal. No pathologic mediastinal adenopathy. Lungs: The lungs are clear with no evidence for infiltrate, pleural effusion or pneumothorax. No par enchymal lung disease. Bones: Significant abnormality. Upper abdomen: Limited imaging of the upper abdomen shows nothing acute. Interval surgical changes are noted in both breasts. IMPRESSION: Negative for PTE. Clear lungs. Signer Name: Antione Ennis Jr, MD Signed: 06/27/2021 2:12 PM Workstation Name: [id number]
--- NOTE | 2021-06-27 14:53 | XRay Report ---
CHEST 2 VIEWS INDICATION / CLINICAL INFORMATION: Shortness of breath. COMPARISON: 12/08/2020 FINDINGS: SUPPORT DEVICES: None. HEART / MEDIASTINUM: No significant abnormality. LUNGS / PLEURA: No significant pulmonary or pleural abnormality. No pneumothorax. ADDITIONAL FINDINGS: No significant additional findings. IMPRESSION: 1. No acute findings. Signer Name: Arnie Flood MD Signed: 06/27/2021 2:48 PM Workstation Name: [id number]
[2021-06-27 16:24] VITALS: BP 112/69
--- NOTE | 2021-07-01 10:53 | Electrocardiograph Report ---
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
== END 2021-06-27 16:24 | disposition home or self-care (01) ==
LOC: ED 11:43
DX: R06.02 Shortness of breath (principal); N61.0 Mastitis without abscess; G43.909 Migraine, unspecified, not intractable, without status migrainosus; D86.9 Sarcoidosis, unspecified; Z98.890 Other specified postprocedural states; Z88.0 Allergy status to penicillin; Z88.6 Allergy status to analgesic agent; Z91.048 Other nonmedicinal substance allergy status
CPT/HCPCS: 36415; 71046; 71275; 80053; 84484; 84702; 85025; 85610; 85730; 93005; 99284; Q9967